=== PATIENT | male | born 1965 | race Caucasian/White ===

== ENCOUNTER 2020-11-04 22:19 | Emergency (ER) | payer OTHER ==
[~2020-11-04] VITALS: Ht 167.6 cm; Wt 88.5 kg
[~2020-11-04 22:19] MED LIST: Bactroban22 GM TOP; CEPH500 PO; DIAZ10; NAPR500 PO
[2020-11-04] MEDS ORDERED: Glucophage 850850 MG PO (23:46)
[2020-11-05] MEDS ORDERED: Valium5 MG PO (00:30)
== END 2020-11-05 01:02 | disposition home or self-care (01) ==
LOC: ER 22:19
DX: S29.012A Strain of muscle and tendon of back wall of thorax, initial encounter (principal); E11.9 Type 2 diabetes mellitus without complications; Z79.84 Long term (current) use of oral hypoglycemic drugs; V49.40XA Driver injured in collision with unspecified motor vehicles in traffic accident, initial encounter; Y92.410 Unspecified street and highway as the place of occurrence of the external cause
CPT/HCPCS: 72040; 72070; 72100; 99284-25; A9270

== ENCOUNTER → 2023-04-20 | Outpatient (CLI) | payer OTHER ==
[~2023-04-20] MED LIST changes: +Glucophage 850850 MG PO; +Valium5 MG PO
[2023-04-20 19:43] LABS: BASOPHILS ABSOLUTE AUTO 0.03 K/mm3 (0.00-0.23); BASOPHILS PERCENT AUTO 1 % (0-2); EOSINOPHILS ABSOLUTE AUTO 0.07 K/mm3 (0.00-0.68); EOSINOPHILS PERCENT AUTO 1 % (0-6); Hematocrit 49.7 % (37.0-53.0); Hemoglobin 17.6 g/dL (13.5-17.5); IMMATURE GRAN ABSOLUTE AUTO 0.01 K/mm3 (0.00-0.10); IMMATURE GRAN PERCENT AUTO 0 % (0-1); LYMPHOCYTES ABSOLUTE AUTO 1.54 K/mm3 (0.84-5.20); LYMPHOCYTES PERCENT AUTO 27 % (21-46); MONOCYTES ABSOLUTE AUTO 0.31 K/mm3 (0.16-1.47); MONOCYTES PERCENT AUTO 6 % (4-13); Mean Corpuscular HGB 30.3 pg (26.0-34.0); Mean Corpuscular HGB Conc 35.4 g/dL (31.5-36.5); Mean Corpuscular Volume 86 fL (80-100); Mean Platelet Volume 10.7 fL (9.1-12.4); NEUTROPHILS ABSOLUTE AUTO 3.69 K/mm3 (1.96-9.15); NEUTROPHILS PERCENT AUTO 65 % (41-73); Platelet Count 178 K/mm3 (150-400); RDW Coefficient Variation 12.1 % (11.7-14.2); RDW Standard Deviation 37.5 fL (35.1-46.3); White Blood Cell Count 5.65 K/mm3 (4.00-11.30)
[2023-04-23 20:07] LABS: ALKALINE PHOSPHATASE, S 107 IU/L (44-121); ALT (SGPT) 81 IU/L (0-44); AST (SGOT) 48 IU/L (0-40); BILIRUBIN, TOTAL 0.6 mg/dL (0.0-1.2); BUN 18 mg/dL (6-24); BUN/CREATININE RATIO 17 (9-20); CALCIUM, SERUM 9.3 mg/dL (8.7-10.2); CARBON DIOXIDE, TOTAL 21 mmol/L (20-29); CHLORIDE, SERUM 102 mmol/L (96-106); CREATININE, SERUM 1.09 mg/dL (0.76-1.27); GLOBULIN, TOTAL 2.3 g/dL (1.5-4.5); GLUCOSE, SERUM 144 mg/dL (70-99); POTASSIUM, SERUM 4.5 mmol/L (3.5-5.2); SODIUM, SERUM 139 mmol/L (134-144)
[2023-04-23 21:07] LABS: CHOLESTEROL, TOTAL 148 mg/dL (100-199); HDL CHOLESTEROL 43 mg/dL (>39); LDL CHOLESTEROL CALC 76 mg/dL (0-99); TRIGLYCERIDES 169 mg/dL (0-149); VLDL CHOLESTEROL CAL 29 mg/dL (5-40)
== END | disposition home or self-care (01) ==
LOC: LAB 17:47 → LAB SHORT 17:47
PROVIDERS: Family Medicine
DX: Z51.81 Encounter for therapeutic drug level monitoring (principal); Z79.899 Other long term (current) drug therapy
CPT/HCPCS: 85025